=== PATIENT | female | born 1945 | race Caucasian/White ===

== ENCOUNTER → 2016-04-15 | Outpatient (CLI) | payer OTHER ==
[~2016-04-15] VITALS: Ht 162.6 cm; Wt 87.1 kg
[~2016-04-15] MED LIST: ASPIR 8181 MG PO; ATORVASTATIN CA40 MG PO; CALCIUM 600 +1 EAC1 PO; DITROPAN XL10 MG PO; LEVOTHYROXINE0.2 M1 PO; LOSARTAN POTAS100 MG PO; OMEGA-31000 M1 PO; OMEPRAZOLE 20 M20 M1 PO; TRIAMTERENE/HCT1 CA1 PO
--- NOTE | ~2016-04-15 | HPC ---
[facility] [address] [place] [address] PAIN MANAGEMENT CONSULTATION Name: ELLI HAMPTON Room #: REG SANIYA Keane.#: [id number] Admission: 04/15/16 Attend Phys: Paresh Keane MD Discharge: Date of : 45 Report #: [id number] THIS REPORT FOR: //name// CC: Paresh Garcai MD DATE OF SERVICE: 04/15/2016 CHIEF COMPLAINT: Low back pain radiating into the right hip. This is the first visit for the patient who is here today at the request of Dr. Erum Garcia. She began experiencing pain about a year ago in her low back and was seeing a chiropractor. Beginning in February, the pain became more sciatica-like. She describes pain into her right hip that radiates all the way to her toes. She has numbness in the outer part of her foot. That pain was fairly gradual in onset. It started after a long car ride. At first it was bilateral pain, then it went into the right leg almost exclusively with radiation. The chiropractor has helped by aligning her spine, but he had not helped sciatica. She has tried some exercises, but said they worsen her pain. She has had no formal physical therapy. She was started on Dosepak in March 2017 with about 40% improvement. The pain has now returned. She has some Tylenol No. 3, which she takes, but it does not give much relief and she has tried a little bit of Tylenol. Dr. Garcia has asked to evaluate her for sciatica, lumbar radiculopathy and possible epidural steroid injection therapy. MEDICATIONS: , calcium, losartan, Ditropan, Flonase, Prilosec, Dyazide, Synthroid, levothyroxine, omega 3, aspirin, Caltrate 600, Medrol Dosepak was discontinued about 2 weeks ago. ALLERGIES: None. PAST MEDICAL HISTORY: Hypertension and anemia. She has a history of hypothyroidism under treatment with replacement of hormone. She had a 70-pound weight loss years ago and has kept the weight off. She suffered a situational depression when her had a stroke about 10 years ago and has some chronic worries about him, but has adjusted. She complains of osteoarthritis primarily in her feet and hips. No history of heart disease, lung disease, liver disease, cancer or stroke. PAST SURGICAL HISTORY: Nasal polyps 2009, D and C late , appendectomy 1961, tubal ligation 1975. She had an epidural injection [place] [address] PAIN MANAGEMENT CONSULTATION Name: ELLI HAMPTON Room #: REG Annamarie Mendoza#: [id number] Admission: 04/15/16 Attend Phys: Paresh Keane MD Discharge: Date of : 45 Report #: [id number] SOCIAL HISTORY: has a stroke at home, she has been off work for 20 years, considers herself a homemaker. She denies use of tobacco, drinks alcohol socially 1-2 times in a social setting. REVIEW OF SYSTEMS: Positive for some blurred vision and occasional constipation. She has nocturia, some incontinence and dribbling on medication. She has insomnia at times. PHYSICAL EXAMINATION: GENERAL: She is pleasant 70-year-old, alert and oriented. VITAL SIGNS: Her blood pressure is 167/94, heart rate is 82, respirations are 16, room air oxygen saturation 95%. CHEST: Clear to auscultation. CARDIAC: Rhythm is regular. ABDOMEN: Soft. MUSCULOSKELETAL: Examination of the spine reveals mild tenderness. There is pain with forward flexion and extension. Straight leg raising does reproduce in both the sitting and supine position, right-sided pain that follows in L5-S1 distribution. She has mild tenderness along the L4 distribution as well into the leg. Deep tendon reflexes are trace knees and ankles. No asymmetry to sensation throughout the lower extremities. An MRI scan is available for review. It is noted in the body of the report that there is a mild offset of L4-L5 by approximately 4 mm, which would be considered a spondylolisthesis typically, but is not dictated in that fashion. She also has degenerative disk disease at that level as well as at L5-S1. Neural foraminal normal in caliber at L5-S1, although there is some moderate narrowing at L4-L5. Facet hypertrophy is noted at L4-L5 which consists of some trefoil narrowing there which may result in radicular symptoms noted on the right. IMPRESSION: Lumbar radiculopathy on the right L5-S1 distribution with spondylolisthesis suggested on MRI. RECOMMENDATIONS: Trial of epidural steroid injection under fluoroscopic guidance. Procedure was explained to the patient including risks and benefits, she was anxious to proceed. She was taken to the fluoroscopic suite for treatment where she was placed prone, skin was prepped with ChloraPrep. Skin was anesthetized over the L4-L5 interspace to the right of midline. A 20-gauge Tuohy epidural needle was advanced in the epidural space with loss of resistance technique. No blood or CSF was aspirated. A 1 mL of Omnipaque was injected with excellent spread of dye observed. It was then followed by 3 mL of 0.5% lidocaine mixed with 80 mg of triamcinolone. She tolerated the procedure well and was observed for 45 minutes and left the pain clinic with a pain score of 0 and a followup visit in 1 month. [facility] [address] [place] [address] PAIN MANAGEMENT CONSULTATION Name: BERTAELLI BLOOD Room #: REG CLI [facility].#: [id number] Admission: 04/15/16 Attend Phys: Paresh Keane MD Discharge: Date of : 45 Report #: [id number] I have also ordered for her physical therapy to be initiated at [facility]. She is to see them once a week for 6 weeks for evaluation and treatment of lumbar radiculopathy. <ELECTRONICALLY SIGNED> By: Paresh Keane MD 04/16/16 1329 [id number] Paresh Keane MD /nt
[2016-04-15 11:18] VITALS: BP 167/94
== END ==
LOC: PAIN 07:12
DX: M54.16 Radiculopathy, lumbar region (principal); I10 Essential (primary) hypertension; E03.9 Hypothyroidism, unspecified; D64.9 Anemia, unspecified; M16.0 Bilateral primary osteoarthritis of hip; Z98.51 Tubal ligation status; Z87.891 Personal history of nicotine dependence

== ENCOUNTER → 2018-06-07 | Outpatient (CLI) | payer OTHER ==
[~2018-06-07] VITALS: Ht 162.6 cm; Wt 93.0 kg
[~2018-06-07] MED LIST changes: +ALENDRONATE SOD70 MG PO; +ALEVE220 MG PO; +MULTIVITAMINS1 EAC7 PO; +PROZAC10 MG PO; +SYNTHROID150 MCG PO; +VITAMIN D1000 UNIT PO
--- NOTE | 2018-06-12 08:16 | P ---
[facility] [place] [address] PROCEDURE REPORT Name: ELLI HAMPTON Room #: REG [facility].#: [id number] Admission: 06/07/18 ������������������ Attend Phys: Washington Byrd Discharge: ������������������ Date of : 45 Report #: [id number] THIS REPORT FOR: //name// CC: Washington Garcia DATE OF SERVICE: 06/07/2018 PROCEDURE PERFORMED: Colonoscopy with biopsies. HISTORY OF PRESENT ILLNESS: The patient is a 72-year-old female who presents today for a screening colonoscopy. Family history of colon polyps. No family history of colon cancer. Her last colonoscopy was approximately 5 years ago and negative other than diverticulosis. She denies any symptoms. DESCRIPTION OF PROCEDURE: The risks and benefits of the procedure were explained to the patient, those risks including, but not limited to, bleeding, perforation, the risk of sedation. She understood these risks and gave informed consent. Sedation was given using propofol per anesthesia. Next, a digital rectal exam was initially performed, which was normal. Next, using a standard Olympus colonoscope, the scope was placed in the patient's anus and advanced under direct vision to the cecum. The overall prep was excellent. Cecum and ileocecal valve were normal in appearance. Ascending and transverse colon were normal. Multiple diverticula were noted in the descending and sigmoid colon. No evidence of inflammation, otherwise normal. A single 4 mm sessile polyp was noted in the rectum, this was removed with cold forceps. On retroflexion, small nonbleeding internal hemorrhoids were noted. The scope was then withdrawn and the procedure terminated. The patient tolerated the procedure well. IMPRESSION: 1. Left-sided diverticulosis. 2. Small rectal polyp. 3. Small internal hemorrhoids. 4. Otherwise, normal colonoscopy. RECOMMENDATIONS: 1. Await biopsy results. 2. If polyp is hyperplastic, repeat in 10 years; if adenomatous polyp, repeat in [address] [address] PROCEDURE REPORT Name: ELLI HAMPTON Room #: REG [facility].#: [id number] Admission: 06/07/18 ������������������ Attend Phys: Washington Byrd Discharge: ������������������ Date of : 45 Report #: [id number] Thank you for allowing me to participate in her care. ��������������������������������������������� <ELECTRONICALLY SIGNED> ���������������������������������������� By: Washington Davalos MD ��������������������������������������������� 06/12/18 0816 [id number] Washington Davalos MD /nt
--- NOTE | 2018-06-12 14:06 | PATH ---
[facility] [address] [place] [address] PATHOLOGY RPT PROCEDURE Name: MAXIMILIAN MCGOWAN Room #: REG [facility] M.R.#: [id number] ������������������ Admission: 06/07/18 ������������������ Date of : 45 Discharge: Report #: [id number] Path Case #: [id number] [facility] Accession Number: [id number] . 01 Material submitted: . POLYP AT RECTUM . 01 Clinical history: . Pre-OP DX: Hx polyps Post-OP DX: Rectal polyp, diverticulosis . 02 Diagnosis: Polyp, at rectum, endoscopic biopsy: - Inflamed hyperplastic polyp. - Negative for dysplasia. (IUV:chase; 06/08/2018) QMS/06/08/2018 . 02 Electronically signed: . Ayleen Del Valle MD, Pathologist NPI- [id number] . 01 Gross description: . Received in formalin labeled "Maximilian Mcgowan, polyp at rectum," are 2 segments of colon soft tissue measuring 0.7 x 0.2 x 0.1 cm in aggregate dimensions and ranging from 0.3 to 0.4 cm in maximum dimension. The specimen is submitted entirely in cassette A1. (TSD; 06/07/2018) TOB/TOB . 02 Pathologist provided ICD-10: K62.1 . 02 CPT . 284663 Specimen Comment: A courtesy copy of this report has been sent to Specimen Comment: [phone], . Specimen Comment: Report sent to / DR ECHEVERRIA Specimen Comment: A duplicate report has been generated due to demographic updates. Performed at: [address] [id number] MD Tank Awan MD Phone: [phone] Performed at: [address] [id number] [address] [address] PATHOLOGY RPT PROCEDURE Name: MAXIMILIAN MCGOWAN Room #: REG SANIYA Mendoza#: [id number] ������������������ Admission: 06/07/18 ������������������ Date of : 45 Discharge: Report #: [id number] Path Case #: [id number] MD Ayleen Del Valle MD Phone: [phone]
== END | disposition home or self-care (01) ==
LOC: GI 05-29 12:17
DX: Z12.11 Encounter for screening for malignant neoplasm of colon (principal); Z83.71 Family history of colonic polyps; K62.1 Rectal polyp; K57.30 Diverticulosis of large intestine without perforation or abscess without bleeding; K64.8 Other hemorrhoids; I10 Essential (primary) hypertension; E78.5 Hyperlipidemia, unspecified; E03.9 Hypothyroidism, unspecified; K21.9 Gastro-esophageal reflux disease without esophagitis; Z98.51 Tubal ligation status; Z90.49 Acquired absence of other specified parts of digestive tract; Z98.890 Other specified postprocedural states; Z79.899 Other long term (current) drug therapy
CPT/HCPCS: 62110; 62900